=== PATIENT | male | born 1950 | race Caucasian/White ===

== ENCOUNTER 2022-12-23 01:53 | Day surgery (SDC) | payer MEDICARE ==
[~2022-12-23 01:53] MED LIST: HYDACE5 PO; NAPR550 PO
== END 2022-12-23 23:00 | disposition home or self-care (01) ==
LOC: WOUND 01:53
DX: I87.313 Chronic venous hypertension (idiopathic) with ulcer of bilateral lower extremity (principal); Z88.5 Allergy status to narcotic agent; I87.2 Venous insufficiency (chronic) (peripheral); L97.812 Non-pressure chronic ulcer of other part of right lower leg with fat layer exposed; L97.822 Non-pressure chronic ulcer of other part of left lower leg with fat layer exposed; E11.622 Type 2 diabetes mellitus with other skin ulcer
CPT/HCPCS: G0463

== ENCOUNTER 2023-01-06 00:38 | Day surgery (SDC) | payer MEDICARE | END 2023-01-06 22:34 | disposition home or self-care (01) | LOC: WOUND 00:38 | DX: I87.313 Chronic venous hypertension (idiopathic) with ulcer of bilateral lower extremity (principal); L97.812 Non-pressure chronic ulcer of other part of right lower leg with fat layer exposed; L97.822 Non-pressure chronic ulcer of other part of left lower leg with fat layer exposed; E11.622 Type 2 diabetes mellitus with other skin ulcer; L03.115 Cellulitis of right lower limb; L03.116 Cellulitis of left lower limb; I87.2 Venous insufficiency (chronic) (peripheral) | CPT/HCPCS: A9270; G0463 ==

== ENCOUNTER 2023-01-20 00:35 | Day surgery (SDC) | payer MEDICARE | END 2023-01-20 22:45 | disposition home or self-care (01) | LOC: WOUND 00:35 | DX: E11.622 Type 2 diabetes mellitus with other skin ulcer (principal); L97.821 Non-pressure chronic ulcer of other part of left lower leg limited to breakdown of skin; I87.2 Venous insufficiency (chronic) (peripheral); I87.312 Chronic venous hypertension (idiopathic) with ulcer of left lower extremity ==

== ENCOUNTER 2023-01-27 00:22 | Day surgery (SDC) | payer MEDICARE | END 2023-01-27 22:53 | disposition home or self-care (01) | LOC: WOUND 00:22 | DX: I87.313 Chronic venous hypertension (idiopathic) with ulcer of bilateral lower extremity (principal); L97.819 Non-pressure chronic ulcer of other part of right lower leg with unspecified severity; L97.812 Non-pressure chronic ulcer of other part of right lower leg with fat layer exposed; L97.822 Non-pressure chronic ulcer of other part of left lower leg with fat layer exposed; E11.622 Type 2 diabetes mellitus with other skin ulcer; I87.2 Venous insufficiency (chronic) (peripheral) | CPT/HCPCS: G0463 ==

== ENCOUNTER 2023-02-10 02:13 | Day surgery (SDC) | payer MEDICARE | END 2023-02-11 23:00 | disposition home or self-care (01) | LOC: WOUND 02:13 | DX: I87.313 Chronic venous hypertension (idiopathic) with ulcer of bilateral lower extremity (principal); L97.812 Non-pressure chronic ulcer of other part of right lower leg with fat layer exposed; L97.822 Non-pressure chronic ulcer of other part of left lower leg with fat layer exposed; E11.622 Type 2 diabetes mellitus with other skin ulcer; I87.2 Venous insufficiency (chronic) (peripheral) ==

== ENCOUNTER 2023-02-17 01:58 | Day surgery (SDC) | payer MEDICARE | END 2023-02-17 22:36 | disposition home or self-care (01) | LOC: WOUND 01:58 | DX: I87.313 Chronic venous hypertension (idiopathic) with ulcer of bilateral lower extremity (principal); L97.812 Non-pressure chronic ulcer of other part of right lower leg with fat layer exposed; L97.822 Non-pressure chronic ulcer of other part of left lower leg with fat layer exposed; E11.622 Type 2 diabetes mellitus with other skin ulcer; I87.2 Venous insufficiency (chronic) (peripheral) ==

== ENCOUNTER 2023-02-24 02:04 | Day surgery (SDC) | payer MEDICARE | END 2023-02-24 22:52 | disposition home or self-care (01) | LOC: WOUND 02:04 | DX: I87.313 Chronic venous hypertension (idiopathic) with ulcer of bilateral lower extremity (principal); L97.812 Non-pressure chronic ulcer of other part of right lower leg with fat layer exposed; E11.622 Type 2 diabetes mellitus with other skin ulcer; I87.2 Venous insufficiency (chronic) (peripheral) ==

== ENCOUNTER 2023-03-03 00:38 | Day surgery (SDC) | payer MEDICARE | END 2023-03-03 22:34 | disposition home or self-care (01) | LOC: WOUND 00:38 | DX: I87.313 Chronic venous hypertension (idiopathic) with ulcer of bilateral lower extremity (principal); L97.812 Non-pressure chronic ulcer of other part of right lower leg with fat layer exposed; L97.822 Non-pressure chronic ulcer of other part of left lower leg with fat layer exposed; E11.622 Type 2 diabetes mellitus with other skin ulcer; I87.2 Venous insufficiency (chronic) (peripheral) ==

== ENCOUNTER 2023-03-10 01:42 | Day surgery (SDC) | payer MEDICARE | END 2023-03-10 22:50 | disposition home or self-care (01) | LOC: WOUND 01:42 | DX: I87.313 Chronic venous hypertension (idiopathic) with ulcer of bilateral lower extremity (principal); L97.812 Non-pressure chronic ulcer of other part of right lower leg with fat layer exposed; L97.822 Non-pressure chronic ulcer of other part of left lower leg with fat layer exposed; E11.622 Type 2 diabetes mellitus with other skin ulcer; I87.2 Venous insufficiency (chronic) (peripheral) ==

== ENCOUNTER 2023-03-18 08:42 | Day surgery (SDC) | payer MEDICARE | END 2023-03-18 22:46 | disposition home or self-care (01) | LOC: WOUND 08:42 | DX: I87.313 Chronic venous hypertension (idiopathic) with ulcer of bilateral lower extremity (principal); L97.812 Non-pressure chronic ulcer of other part of right lower leg with fat layer exposed; L97.822 Non-pressure chronic ulcer of other part of left lower leg with fat layer exposed; E11.622 Type 2 diabetes mellitus with other skin ulcer; I87.2 Venous insufficiency (chronic) (peripheral) ==

== ENCOUNTER 2023-03-24 01:05 | Day surgery (SDC) | payer MEDICARE | END 2023-03-24 22:45 | disposition home or self-care (01) | LOC: WOUND 01:05 | DX: I87.313 Chronic venous hypertension (idiopathic) with ulcer of bilateral lower extremity (principal); L97.812 Non-pressure chronic ulcer of other part of right lower leg with fat layer exposed; L97.822 Non-pressure chronic ulcer of other part of left lower leg with fat layer exposed; E11.622 Type 2 diabetes mellitus with other skin ulcer; I87.2 Venous insufficiency (chronic) (peripheral) | CPT/HCPCS: G0463 ==

== ENCOUNTER 2023-03-31 01:46 | Day surgery (SDC) | payer MEDICARE | END 2023-03-31 22:52 | disposition home or self-care (01) | LOC: WOUND 01:46 | DX: I87.313 Chronic venous hypertension (idiopathic) with ulcer of bilateral lower extremity (principal); E11.622 Type 2 diabetes mellitus with other skin ulcer; L97.812 Non-pressure chronic ulcer of other part of right lower leg with fat layer exposed; L97.822 Non-pressure chronic ulcer of other part of left lower leg with fat layer exposed ==

== ENCOUNTER 2023-04-21 00:57 | Day surgery (SDC) | payer MEDICARE | END 2023-04-21 23:07 | disposition home or self-care (01) | LOC: WOUND 00:57 | DX: I87.313 Chronic venous hypertension (idiopathic) with ulcer of bilateral lower extremity (principal); L97.812 Non-pressure chronic ulcer of other part of right lower leg with fat layer exposed; L97.822 Non-pressure chronic ulcer of other part of left lower leg with fat layer exposed; E11.622 Type 2 diabetes mellitus with other skin ulcer; I87.2 Venous insufficiency (chronic) (peripheral) | CPT/HCPCS: A9270 ==

== ENCOUNTER 2023-04-28 00:26 | Day surgery (SDC) | payer MEDICARE | END 2023-04-28 22:47 | disposition home or self-care (01) | LOC: WOUND 00:26 | DX: I87.313 Chronic venous hypertension (idiopathic) with ulcer of bilateral lower extremity (principal); E11.622 Type 2 diabetes mellitus with other skin ulcer; L97.812 Non-pressure chronic ulcer of other part of right lower leg with fat layer exposed; L97.822 Non-pressure chronic ulcer of other part of left lower leg with fat layer exposed | CPT/HCPCS: G0463 ==

== ENCOUNTER 2023-05-05 01:04 | Day surgery (SDC) | payer MEDICARE | END 2023-05-06 22:54 | disposition home or self-care (01) | LOC: WOUND 01:04 | DX: I87.313 Chronic venous hypertension (idiopathic) with ulcer of bilateral lower extremity (principal); L97.812 Non-pressure chronic ulcer of other part of right lower leg with fat layer exposed; L97.822 Non-pressure chronic ulcer of other part of left lower leg with fat layer exposed; E11.622 Type 2 diabetes mellitus with other skin ulcer; I87.2 Venous insufficiency (chronic) (peripheral) ==

== ENCOUNTER 2023-05-07 11:24 | Day surgery (SDC) | payer MEDICARE | END 2023-05-07 22:38 | disposition home or self-care (01) | LOC: WOUND 11:24 | DX: I87.313 Chronic venous hypertension (idiopathic) with ulcer of bilateral lower extremity (principal); L97.812 Non-pressure chronic ulcer of other part of right lower leg with fat layer exposed; L97.822 Non-pressure chronic ulcer of other part of left lower leg with fat layer exposed; E11.622 Type 2 diabetes mellitus with other skin ulcer; I87.2 Venous insufficiency (chronic) (peripheral); I89.0 Lymphedema, not elsewhere classified ==

== ENCOUNTER 2023-05-09 02:32 | Day surgery (SDC) | payer MEDICARE | END 2023-05-09 23:00 | disposition home or self-care (01) | LOC: WOUND 02:32 | DX: I87.313 Chronic venous hypertension (idiopathic) with ulcer of bilateral lower extremity (principal); E11.622 Type 2 diabetes mellitus with other skin ulcer; L97.812 Non-pressure chronic ulcer of other part of right lower leg with fat layer exposed; L97.822 Non-pressure chronic ulcer of other part of left lower leg with fat layer exposed | CPT/HCPCS: A9270 ==

== ENCOUNTER 2023-05-12 02:13 | Day surgery (SDC) | payer MEDICARE | END 2023-05-12 22:43 | disposition home or self-care (01) | LOC: WOUND 02:13 | DX: E11.622 Type 2 diabetes mellitus with other skin ulcer (principal); L97.812 Non-pressure chronic ulcer of other part of right lower leg with fat layer exposed; L97.822 Non-pressure chronic ulcer of other part of left lower leg with fat layer exposed; I87.313 Chronic venous hypertension (idiopathic) with ulcer of bilateral lower extremity | CPT/HCPCS: G0463 ==

== ENCOUNTER 2023-05-19 02:27 | Day surgery (SDC) | payer MEDICARE | END 2023-05-19 22:38 | disposition home or self-care (01) | LOC: WOUND 02:27 | DX: I87.313 Chronic venous hypertension (idiopathic) with ulcer of bilateral lower extremity (principal); L97.812 Non-pressure chronic ulcer of other part of right lower leg with fat layer exposed; L97.822 Non-pressure chronic ulcer of other part of left lower leg with fat layer exposed; E11.622 Type 2 diabetes mellitus with other skin ulcer ==

== ENCOUNTER 2023-05-26 00:41 | Day surgery (SDC) | payer MEDICARE | END 2023-05-26 22:42 | disposition home or self-care (01) | LOC: WOUND 00:41 | DX: I87.313 Chronic venous hypertension (idiopathic) with ulcer of bilateral lower extremity (principal); L97.812 Non-pressure chronic ulcer of other part of right lower leg with fat layer exposed; L97.822 Non-pressure chronic ulcer of other part of left lower leg with fat layer exposed; E11.622 Type 2 diabetes mellitus with other skin ulcer; I87.2 Venous insufficiency (chronic) (peripheral) | CPT/HCPCS: G0463 ==

== ENCOUNTER 2023-06-02 02:47 | Day surgery (SDC) | payer MEDICARE | END 2023-06-02 22:54 | disposition home or self-care (01) | LOC: WOUND 02:47 | DX: E11.622 Type 2 diabetes mellitus with other skin ulcer (principal); L97.819 Non-pressure chronic ulcer of other part of right lower leg with unspecified severity; L97.829 Non-pressure chronic ulcer of other part of left lower leg with unspecified severity; I87.2 Venous insufficiency (chronic) (peripheral); I87.313 Chronic venous hypertension (idiopathic) with ulcer of bilateral lower extremity | CPT/HCPCS: G0463 ==

== ENCOUNTER 2023-09-10 02:12 | Day surgery (SDC) | payer MEDICARE | END 2023-09-10 22:48 | disposition home or self-care (01) | LOC: WOUND 02:12 | DX: I89.0 Lymphedema, not elsewhere classified (principal) ==

== ENCOUNTER 2023-11-07 01:58 | Day surgery (SDC) | payer MEDICARE | END 2023-11-08 22:58 | disposition home or self-care (01) | LOC: WOUND 01:58 | DX: I87.313 Chronic venous hypertension (idiopathic) with ulcer of bilateral lower extremity (principal); E11.622 Type 2 diabetes mellitus with other skin ulcer; L97.822 Non-pressure chronic ulcer of other part of left lower leg with fat layer exposed; L97.812 Non-pressure chronic ulcer of other part of right lower leg with fat layer exposed; I89.0 Lymphedema, not elsewhere classified; I87.2 Venous insufficiency (chronic) (peripheral) ==

== ENCOUNTER 2023-11-12 08:28 | Day surgery (SDC) | payer MEDICARE | END 2023-11-12 22:36 | disposition home or self-care (01) | LOC: WOUND 08:28 | DX: I89.0 Lymphedema, not elsewhere classified (principal); S81.802A Unspecified open wound, left lower leg, initial encounter; S81.801A Unspecified open wound, right lower leg, initial encounter; X58.XXXA Exposure to other specified factors, initial encounter | CPT/HCPCS: A6213 ==

== ENCOUNTER 2023-11-21 05:13 | Day surgery (SDC) | payer MEDICARE | END 2023-11-21 22:35 | disposition home or self-care (01) | LOC: WOUND 05:13 | DX: E11.622 Type 2 diabetes mellitus with other skin ulcer (principal); L97.822 Non-pressure chronic ulcer of other part of left lower leg with fat layer exposed; L97.812 Non-pressure chronic ulcer of other part of right lower leg with fat layer exposed; I87.313 Chronic venous hypertension (idiopathic) with ulcer of bilateral lower extremity; I89.0 Lymphedema, not elsewhere classified; I87.2 Venous insufficiency (chronic) (peripheral) ==